=== PATIENT | female | born 2000 | race American Indian/Alaskan Native ===

== ENCOUNTER 2022-01-18 21:25 | Emergency (ER) | payer MEDICAID ==
[2022-01-18 21:33] VITALS: BP 112/52
== END 2022-01-19 04:00 | disposition left against medical advice (07) ==
LOC: ED 21:25
DX: O26.891 Other specified pregnancy related conditions, first trimester (principal); R10.9 Unspecified abdominal pain; Z53.21 Procedure and treatment not carried out due to patient leaving prior to being seen by health care provider